=== PATIENT | male | born 1965 | race Caucasian/White ===

== ENCOUNTER 2018-08-10 06:29 | Emergency (ER) | payer OTHER ==
[~2018-08-10] VITALS: Ht 172.7 cm; Wt 88.9 kg
[2018-08-10 06:38] VITALS: Ht 172.7 cm; Wt 88.9 kg
[2018-08-10 07:51] VITALS: BP 163/112
== END 2018-08-10 07:51 | disposition home or self-care (01) ==
LOC: ED 06:29
DX: S68.121A Partial traumatic metacarpophalangeal amputation of left index finger, initial encounter (principal); W22.8XXA Striking against or struck by other objects, initial encounter; Y93.89 Activity, other specified; Y92.89 Other specified places as the place of occurrence of the external cause; Y99.8 Other external cause status
CPT/HCPCS: 90715; J0690